=== PATIENT | male | born 1960 | race Caucasian/White ===

== ENCOUNTER 2018-01-06 21:53 | Emergency (ER) | payer OTHER ==
[~2018-01-06] VITALS: Ht 185.4 cm; Wt 90.7 kg
[2018-01-06] MEDS ORDERED: MEDROLDOSEPACK PO (22:24)
[2018-01-06] MEDS ORDERED: HYDROCODONE-AP1 EAC6 PO (22:24)
[2018-01-06] MEDS ORDERED: ROBAXIN 750 MG750 M1 PO (22:24)
[2018-01-06 22:44] VITALS: BP 103/63
== END 2018-01-06 22:44 | disposition home or self-care (01) ==
LOC: M.ERS 21:53
DX: M54.5 Low back pain (principal); Z90.89 Acquired absence of other organs; Z88.2 Allergy status to sulfonamides